=== PATIENT | male | born 1960 | race Caucasian/White ===

== ENCOUNTER 2020-03-29 15:03 | Outpatient (RCR) | payer MEDICAID, SELFPAY | END 2021-01-09 08:00 | disposition home or self-care (01) | LOC: HO.WCC 15:03 | PROVIDERS: Visit Provider Surgery | DX: E11.621 Type 2 diabetes mellitus with foot ulcer (principal); L97.515 Non-pressure chronic ulcer of other part of right foot with muscle involvement without evidence of necrosis; E11.22 Type 2 diabetes mellitus with diabetic chronic kidney disease; I12.9 Hypertensive chronic kidney disease with stage 1 through stage 4 chronic kidney disease, or unspecified chronic kidney disease; N18.30 Chronic kidney disease, stage 3 unspecified; F11.20 Opioid dependence, uncomplicated; B20 Human immunodeficiency virus [HIV] disease; Z89.512 Acquired absence of left leg below knee; Z87.891 Personal history of nicotine dependence; Z86.19 Personal history of other infectious and parasitic diseases | CPT/HCPCS: 11042; 11043; 11045; 15275; 99213; Q4186; Q4187 ==

== ENCOUNTER → 2020-04-24 14:27 | Outpatient (BNVA) | payer MEDICAID, SELFPAY | PROVIDERS: Visit Provider Surgery Vascular Surgery | DX: I73.9 Peripheral vascular disease, unspecified (principal); Z89.512 Acquired absence of left leg below knee | CPT/HCPCS: 99212 ==

== ENCOUNTER 2020-04-25 06:59 | Day surgery (SDC) | payer MEDICAID, SELFPAY ==
[2020-04-25] VITALS (8 sets, daily range): BP systolic 104–137; BP diastolic 68–84; PULSE 55–88; RESP 16–18; TEMP 36.3–36.6; O2SAT 94–98; BMI 24.7
[2020-04-25 08:12] LABS: Glucose, Whole Blood 209 mg/dL (60-115)
[2020-04-25] MEDS: 0.9 % Sodium Chloride 1,000 ML 100 ML IVCONT (08:33)
[2020-04-25 08:36] LABS: MANUAL DIFF FLAG NO
[2020-04-25 08:38] LABS: Basophils Percent Auto 0.5 % (0-2); Eosinophils Absolute Auto 0.1 X10*3/uL (0.0-0.4); Eosinophils Percent Auto 1.4 % (0-4); Hemoglobin 11.7 g/dl (14.0-18.0); Imm Gran Abs Auto 0.02 X10*3/uL (0.00-0.03); Imm Gran Pct Auto 0.3 % (0.0-0.4); Lymphocytes Absolute Auto 2.2 X10*3/uL (1.2-4.9); Lymphocytes Percent Auto 27.6 % (20-40); Mean Corpuscular HGB Conc 34.4 g/dl (31.0-36.0); Mean Corpuscular Hemoglobin 30.4 pg (27.0-33.0); Mean Corpuscular Volume 88.3 fL (80-98); Mean Platelet Volume 9.3 fL (9.4-12.4); Monocytes Absolute Auto 0.6 X10*3/uL (0.1-1.2); Monocytes Percent Auto 7.8 % (2-11); Neutrophils Absolute Auto 4.9 X10*3/uL (2.0-8.3); Neutrophils Percent Auto 62.4 % (45-73); Platelet Count 178 X10*3/uL (160-400); Red Blood Count 3.85 X10*6/uL (4.60-5.80); Red Cell Distribution Width 12.6 % (11.0-16.0); White Blood Count 7.8 X10*3/uL (4.8-10.8)
[2020-04-25 08:47] LABS: Prothrombin Time 12.1 SEC (10.8-13.0)
[2020-04-25 08:50] LABS: Partial Thromboplastin Time 41.5 SEC (24.1-38.0)
[2020-04-25 09:00] LABS: Anion Gap 14 (12-20); Blood Urea Nitrogen 23 mg/dL (9-16); Calcium 8.3 mg/dL (8.4-10.2); Carbon Dioxide 26 mmol/L (22-29); Chloride 98 mmol/L (96-108); Creatinine Clr Calc Pharmacy 51.2; Estimated Glomerular Filt Rate 45; Glucose Random 219 mg/dL (60-115); Sodium 134 mmol/L (135-145)
[2020-04-25] MEDS: iohexoL 300 MG/ML 100 ML INFUS..BTL 60 ML IV (11:25)
[2020-04-25] MEDS: Lidocaine HCl 1 % 20 ML VIAL 10 ML SUBCUT (11:26)
[2020-04-25] MEDS: Heparin Sodium,Porcine 5,000 UNIT/ML VIAL 10000 UNIT IVPUSH (11:27)
[2020-04-25] MEDS: Clopidogrel Bisulfate 300 MG TABLET PO (11:36)
--- NOTE | 2020-04-25 14:25 | OP_ITS ---
SURGEON: Edgardo Dennis MD INDICATIONS: Keyla is a 59-year-old gentleman with a prior left below-knee amputation with a nonhealing right lower extremity ulceration. He now presents for endovascular intervention. Risks, benefits, and complications were discussed in detail with the patient. The patient understood and consented. PREOPERATIVE DIAGNOSIS: POSTOPERATIVE DIAGNOSIS: PROCEDURE PERFORMED: ESTIMATED BLOOD LOSS: Minimal. COMPLICATIONS: ANESTHESIA: Local with moderate conscious sedation for a total of 52 minutes performed by me. ASSISTANTS: SPECIMENS: None. PREPROCEDURE DIAGNOSIS: Atherosclerosis with nonhealing right lower extremity ulcer. POSTPROCEDURE DIAGNOSIS: Atherosclerosis with nonhealing right lower extremity ulcer. PROCEDURES PERFORMED: 1. Ultrasound-guided left common femoral access. 2. Aortogram with right lower extremity runoff. 3. Plasty of right anterior tibial artery. 4. StarClose closure device placement. DESCRIPTION OF PROCEDURE: The patient was brought to the angiography suite, prior to which timeout was called for patient identification and site verification. Left groin was prepped and draped in standard surgical fashion. Under ultrasound guidance, common femoral was accessed with micropuncture needle, wire, subsequently 4-[place] sheath. Flush catheter was brought to the level of the aorta. Aortogram was then undertaken, brought down to the level of the iliacs. Iliacs were imaged, subsequently brought up and over to the right side through the SFA, which runoff study was then undertaken. There was below-knee disease. At this point, 4000 units of systemic heparin was administered and a Glidewire Advantage was placed and then a 6-[place] Citizen sheath was brought up and over. Once in appropriate position, I brought a wire down into the anterior tibial, placed a TrailBlazer catheter and exchanged out for a 0.014 wire. Over the 0.014 wire, we subsequently placed a progressive balloon 1.5 to 2, and we then plastied the area with a 2 x 40 balloon. Subsequently, we went to a 3 x 40 balloon and plastied along the length of the anterior tibial. This went all the way down to the mid calf. We were not able to advance any further than that. Once this was accomplished, catheter, wire, sheath were then removed. StarClose closure device was then deployed. At the end of the case, sponge, needle, and instrument counts were correct. The patient tolerated the procedure well, returned to Recovery with stable vitals. INTERPRETATION OF FILMS: 1. Ultrasound guidance left side demonstrated appropriate puncture. 2. Aortogram demonstrated good flow through the aorta down to the iliacs. 3. Right lower extremity study demonstrated good flow down through the common femoral, profunda, SFA all the way down to the popliteal. Posterior tibial was the dominant runoff went all the way to the foot was a very good caliber. Peroneal was occluded near the origin. Anterior tibial had some flow through the proximal part with significant stenotic disease. After plasty, it was patent all the way down to the mid portion, giving flow to some collaterals, but occluded at the mid calf. Good flow all the way down to the mid calf in the anterior tibial. CONCLUSION: Successful diagnostic angiogram, successful plasty of right anterior tibial artery, hopes that the wound will heal. There is no additional flow that can be established for this leg. DRAINS: None. MD CHRISTIE Mclean/POLO / [id number]
== END 2020-04-25 13:45 | disposition home or self-care (01) ==
LOC: HO.RADIR 07:20 → HO.SSS 07:59
PROVIDERS: PCP Family Medicine; Visit Provider Surgery Vascular Surgery
PROC: (CPT 37228; principal; 2020-04-25 09:00)
DX: E11.622 Type 2 diabetes mellitus with other skin ulcer (principal); Z79.4 Long term (current) use of insulin; E11.621 Type 2 diabetes mellitus with foot ulcer; E11.42 Type 2 diabetes mellitus with diabetic polyneuropathy; E11.51 Type 2 diabetes mellitus with diabetic peripheral angiopathy without gangrene; I70.238 Atherosclerosis of native arteries of right leg with ulceration of other part of lower leg; I70.235 Atherosclerosis of native arteries of right leg with ulceration of other part of foot; L97.519 Non-pressure chronic ulcer of other part of right foot with unspecified severity; L97.819 Non-pressure chronic ulcer of other part of right lower leg with unspecified severity; Z89.512 Acquired absence of left leg below knee; Z21 Asymptomatic human immunodeficiency virus [HIV] infection status
CPT/HCPCS: 37228; 36253; 36415; 76942; 80048; 82947; 85025; 85610; 85730; C1725; C1760; C1769; C1887; J2250; J3010; Q9967

== ENCOUNTER → 2020-05-22 08:42 | Outpatient (BNVA) | payer MEDICAID, SELFPAY | PROVIDERS: PCP Family Medicine; Referring Provider Family Medicine; Visit Provider Surgery Vascular Surgery | DX: L97.419 Non-pressure chronic ulcer of right heel and midfoot with unspecified severity (principal); I73.9 Peripheral vascular disease, unspecified; Z89.431 Acquired absence of right foot | CPT/HCPCS: 99212 ==

== ENCOUNTER 2020-07-04 08:34 | Outpatient (REF) | payer MEDICAID, SELFPAY ==
--- NOTE | 2020-07-04 08:38 | US_ITS ---
EXAMINATION: COLOR-FLOW DUPLEX IMAGING OF THE BILATERAL LOWER EXTREMITY ARTERIAL SYSTEM. VELOCITY MEASUREMENTS THROUGHOUT THE FEMORAL ARTERIES WITH ANKLE-BRACHIAL PERIPHERAL ARTERIAL TESTING. COMPARISON: Comparison is made to a previous study dated 01/17/2020. CLINICAL INFORMATION: This a 59-year-old male with a history of hypertension, hyperlipidemia, diabetes. History of right leg angiogram on 04/25/2020. History of right foot amputation 2 years ago. History of left below-knee amputation 3 years ago. Interventional Radiologist: Agustin Hameed M.D., F.S.I.R., F.A.C.R. RIGHT FEMORAL RUNOFF VELOCITIES: The right common femoral artery measures 101 cm/s and triphasic. The right profunda femoral artery is 58 cm/s and is triphasic. Right proximal superficial femoral artery measures 105 cm/s and triphasic. Mid superficial femoral artery is 115 cm/s and triphasic. Distal right superficial femoral artery measures 61 cm/s and is triphasic. Right popliteal velocity measures 80 cm/s and is triphasic. The posterior tibial artery velocity measures 123 cm/s and was triphasic. The right ankle-brachial index is 0.99. LEFT FEMORAL RUNOFF VELOCITIES: The left common femoral artery measures 105 cm/s and triphasic. The left profunda femoral artery is 91 cm/s and is triphasic. Left proximal superficial femoral artery measures 61 cm/s and triphasic. Mid superficial femoral artery is 72 cm/s and triphasic. Distal left superficial femoral artery measures 80 cm/s and is triphasic. Left popliteal velocity measures 38 cm/s and is triphasic. The left ankle-brachial index could not be obtained because of the amputation. US/US arterial duplex LE BI IMPRESSION: 1. No hemodynamically significant stenosis is identified at rest. No significant changes noted when compared to the previous study.
== END 2020-07-04 08:35 | disposition home or self-care (01) ==
LOC: HO.US 08:34
PROVIDERS: Visit Provider Surgery Vascular Surgery
DX: I70.213 Atherosclerosis of native arteries of extremities with intermittent claudication, bilateral legs (principal)
CPT/HCPCS: 93923; 93925

== ENCOUNTER → 2020-07-13 08:00 | Outpatient (BNVA) | payer MEDICAID, SELFPAY | PROVIDERS: Visit Provider Nurse Practitioner Gerontology | DX: Z76.89 Persons encountering health services in other specified circumstances (principal) ==

== ENCOUNTER 2020-07-17 14:02 | Outpatient (REF) | payer MEDICAID, SELFPAY ==
--- NOTE | 2020-07-17 | MR_ITS ---
EXAMINATION: MR ABDOMEN WITHOUT AND WITH CONTRAST CLINICAL INFORMATION: Chronic viral hepatitis B. Abnormal alpha-fetoprotein. COMPARISON: Previous abdominal ultrasound December [address] scan of the abdomen and pelvis March 2018 TECHNIQUE: MR abdomen was performed without and with use of 7.5 mL intravenous Gadavist gadolinium contrast. Postcontrast images are performed in multiphase dynamic sequences. Imaging was performed in 3 planes. FINDINGS: LUNG BASES: The visualized lung bases are unremarkable. LIVER, GALLBLADDER, AND BILIARY TREE: The liver is normal in size, smooth in contour, and normal in signal. There is a new lesion in the posterior segment of the right lobe of the liver. This is low signal on T1-weighted sequences, high signal on T2-weighted sequences and demonstrates peripheral enhancement. This remains peripheral enhancemed on all sequences without evidence of washout. Superiorly this appears more cystic with a multiloculated septations and question of a small satellite nodules. Inferiorly this appears slightly more solid. This is irregular in shape and difficult to measure. This measures approximately 5.3 x 3.7 by an AP transverse and 8.4 longitudinal dimension. There is question of thrombus in an adjacent portal vein branch for example image 41 and 46 post contrast. This is new from previous exams. This does not have a washout enhancement pattern to suggest hepatocellular cancer carcinoma. This does demonstrate peripheral pseudocapsule prolonged enhancement superiorly. Abscess and metastatic disease should be considered as well as atypical appearing HCC. No other focal liver lesion is seen. There are gallstones in the gallbladder. There is no biliary duct dilatation. PANCREAS: Unremarkable. SPLEEN: The spleen is slightly enlarged measuring 14 cm in length. ADRENAL GLANDS: Normal. KIDNEYS AND URETERS: There are small right renal cysts. GASTROINTESTINAL TRACT: No bowel obstruction. No ascites or fluid collection. The stomach appears filled with food. ABDOMINAL WALL: No significant hernia is appreciated. LYMPH NODES: No lymphadenopathy. VASCULAR: Unremarkable. OSSEOUS STRUCTURES: Marrow signal normal. There is mild curvature of the lower lumbar sacral spine to the left and degenerative change. MR/MR abdomen wo/w con IMPRESSION: New heterogeneous lesion in the posterior segment of the right lobe of the liver measuring approximately 5.3 x 3.7 x 8.4 cm. Superiorly this appears more cystic and inferiorly this appears more solid. This does not have early arterial phase enhancement and washout characteristic of hepatocellular carcinoma. This does demonstrate retained peripheral enhancement or possible pseudocapsule appearance. Abscess and metastatic disease as well as hepatocellular carcinoma should be considered. Liver biopsy should be considered. Gallstones. Small right renal cysts.
== END 2020-07-17 14:03 | disposition home or self-care (01) ==
LOC: HO.MRI 14:02
PROVIDERS: Visit Provider Family Medicine
DX: B18.1 Chronic viral hepatitis B without delta-agent (principal); B20 Human immunodeficiency virus [HIV] disease; E13.40 Other specified diabetes mellitus with diabetic neuropathy, unspecified; R77.2 Abnormality of alphafetoprotein
CPT/HCPCS: 74183; 99212; A9585

== ENCOUNTER 2020-07-31 07:52 | Day surgery (SDC) | payer MEDICAID, SELFPAY ==
--- NOTE | 2020-07-31 | US_ITS ---
EXAMINATION: ULTRASOUND-GUIDED LIVER BIOPSY CLINICAL INFORMATION: Liver lesion. History of chronic viral hepatitis B. Abnormal alpha-fetoprotein. COMPARISON: Liver MRI 07/17/2020 TECHNIQUE: Procedure and risks and benefits including bleeding and infection were discussed with the patient and informed consent was obtained. The patient was positioned in the supine position. The right upper quadrant was prepped and draped in the usual sterile fashion. The skin and soft tissues were anesthetized with 1% lidocaine plain. Using ultrasound guidance and a coaxial system, access to a partially 5 cm hypoechoic lesion high in the right lobe of the liver was obtained. 5 20-gauge core biopsies were obtained. Specimen was sent for pathology and microbiology studies. The patient received Versed 1 mg and fentanyl 25 mcg intravenously during the procedure. Total sedation time was 15 minutes. FINDINGS: Liver echotexture is increased and heterogeneous suggestive of hepatocellular disease. There is a 5 cm hypoechoic lesion seen high in the dome of the right lobe of the liver that was targeted for biopsy. This is smaller than abnormality appreciated by MRI. US/US biopsy liver IMPRESSION: Ultrasound-guided liver biopsy.
[2020-07-31 08:13] LABS: Glucose, Whole Blood 164 mg/dL (60-115)
[2020-07-31 08:23] LABS: MANUAL DIFF FLAG NO
[2020-07-31 08:26] LABS: Basophils Absolute Auto 0.1 X10*3/uL (0.0-0.2); Basophils Percent Auto 0.7 % (0-2); Eosinophils Absolute Auto 0.1 X10*3/uL (0.0-0.4); Eosinophils Percent Auto 1.4 % (0-4); Hemoglobin 11.9 g/dl (14.0-18.0); Imm Gran Abs Auto 0.04 X10*3/uL (0.00-0.03); Imm Gran Pct Auto 0.5 % (0.0-0.4); Lymphocytes Absolute Auto 1.9 X10*3/uL (1.2-4.9); Lymphocytes Percent Auto 26.3 % (20-40); Mean Corpuscular HGB Conc 33.1 g/dl (31.0-36.0); Mean Corpuscular Hemoglobin 29.5 pg (27.0-33.0); Mean Corpuscular Volume 89.1 fL (80-98); Mean Platelet Volume 9.2 fL (9.4-12.4); Monocytes Absolute Auto 0.5 X10*3/uL (0.1-1.2); Monocytes Percent Auto 7.4 % (2-11); Neutrophils Absolute Auto 4.7 X10*3/uL (2.0-8.3); Neutrophils Percent Auto 63.7 % (45-73); Platelet Count 197 X10*3/uL (160-400); Red Blood Count 4.04 X10*6/uL (4.60-5.80); Red Cell Distribution Width 13.1 % (11.0-16.0); White Blood Count 7.3 X10*3/uL (4.8-10.8)
[2020-07-31 08:32] LABS: Prothrombin Time 11.9 SEC (10.8-13.0)
[2020-07-31 08:35] LABS: Partial Thromboplastin Time 41.5 SEC (24.1-38.0)
[2020-07-31 08:49] LABS: Anion Gap 14 (12-20); Carbon Dioxide 29 mmol/L (22-29); Chloride 101 mmol/L (96-108); Potassium 4.8 mmol/L (3.3-5.1); Sodium 139 mmol/L (135-145)
--- NOTE | 2020-07-31 10:32 | HO.RADPN ---
RADIOLOGY Narrative Narrative: 20g Core biopsy of right lover liver lesion using a coaxial system. 5 20g core biopsies obtained for pathology and culture. No complication.
[2020-07-31 10:37] VITALS: BP 115/71; PULSE 66; RESP 12; TEMP 36.1; O2SAT 97
[2020-07-31 11:07] VITALS: BP 112/61; PULSE 65; RESP 16; O2SAT 98
[2020-07-31 11:37] VITALS: BP 124/71; PULSE 72; RESP 16; O2SAT 98
[2020-07-31 12:07] VITALS: BP 99/50; PULSE 67; RESP 18; O2SAT 97
[2020-07-31 12:31] VITALS: BP 104/52; PULSE 64; RESP 20; TEMP 36.2; O2SAT 97
== END 2020-07-31 12:58 | disposition home or self-care (01) ==
PROVIDERS: Radiology Diagnostic Radiology; PCP Family Medicine; Visit Provider Radiology Diagnostic Radiology
DX: C22.0 Liver cell carcinoma (principal); B18.1 Chronic viral hepatitis B without delta-agent; B20 Human immunodeficiency virus [HIV] disease; I10 Essential (primary) hypertension; E11.42 Type 2 diabetes mellitus with diabetic polyneuropathy; E11.29 Type 2 diabetes mellitus with other diabetic kidney complication; N28.9 Disorder of kidney and ureter, unspecified; I73.9 Peripheral vascular disease, unspecified; Z89.432 Acquired absence of left foot; Z79.4 Long term (current) use of insulin; Z79.899 Other long term (current) drug therapy
CPT/HCPCS: 36415; 47000; 76942; 80051; 82947; 85025; 85610; 85730; 87071; 87073; 87205; 88307; 88313; 99152; J2250; J3010

== ENCOUNTER 2020-08-15 09:31 | Outpatient (REF) | payer MEDICAID, SELFPAY ==
--- NOTE | ~2020-08-15 | XR_ITS ---
EXAMINATION: XR FOOT, RIGHT CLINICAL INFORMATION: Right foot plantar osteomyelitis. COMPARISON: 12/02/2019 TECHNIQUE: Three views of the right foot. FINDINGS: Patient is status post amputation of the forefoot with remaining calcaneus and talar bones. Clips are seen anteriorly. There is a soft tissue defect consistent with ulcer about the plantar aspect. No gas within the soft tissues is identified. No definite osteopenia adjacent to the ulcer is identified. There does appear to be a slight amount of irregularity about the dorsal plantar aspect of the calcaneal amputation site which on study of 12/02/2019 was smooth and linear, and now there appears to be a small amount of undulation. This may be related to some degree of healing, however, osteomyelitis cannot be excluded on this study. XR/XR foot RT min 3V IMPRESSION: Status post amputation of the forefoot with soft tissue ulceration about the plantar aspect. No definite erosion or adjacent osteopenia but with slight irregularity about the dorsal plantar calcaneal amputation site.
[2020-08-15 12:20] LABS: Estimated Average Glucose 226 mg/dL; Hemoglobin A1c % 9.5 %
== END 2020-08-15 09:32 | disposition home or self-care (01) ==
LOC: HO.XRAY 09:31
PROVIDERS: Visit Provider Surgery
DX: E11.621 Type 2 diabetes mellitus with foot ulcer (principal); E11.69 Type 2 diabetes mellitus with other specified complication; L97.509 Non-pressure chronic ulcer of other part of unspecified foot with unspecified severity; M86.9 Osteomyelitis, unspecified
CPT/HCPCS: 36415; 73630; 83036

== ENCOUNTER → 2020-11-09 09:27 | Outpatient (BNVA) | payer MEDICAID, SELFPAY | PROVIDERS: PCP Family Medicine; Referring Provider Family Medicine; Visit Provider Nurse Practitioner Family ==

== ENCOUNTER 2020-11-11 16:33 | Emergency (ER) | payer MEDICAID, SELFPAY ==
--- NOTE | ~2020-11-11 | CT_ITS ---
EXAMINATION: CT ABDOMEN AND PELVIS WITHOUT CONTRAST CLINICAL INFORMATION: Worsening abdominal pn,nausea and vomit with dx of liver ca . COMPARISON: 04/01/[address] scan of the chest. TECHNIQUE: Multidetector volumetric imaging was performed from the superior aspect of the liver through the pubic symphysis without contrast per request. Sagittal and coronal reformatted images were obtained on the technologist workstation. This CT examination was performed using dose optimization techniques as appropriate, variously including the following: *Automated exposure control *Adjustment of mA and/or kV according to patient size (this includes techniques or standardized protocols for targeted exams where dose is matched to indication/reason for exam; i.e. extremities or head) *Use of iterative reconstruction technique DLP: 411 mGy-cm. FINDINGS: LUNG BASES: Minimal dependent linear atelectasis or scarring. PERITONEAL SPACE: Small volume ascites LIVER, GALLBLADDER, BILIARY TREE: Evaluation the liver is somewhat limited on this noncontrast study. There is however a large mass lesion occupying much of the right posterior liver measuring approximately 14.0 x 13.1 cm in size. This was partially seen on the 10/12/2020 CT scan of the chest were visualized in the liver mass that measured approximately 12.7 x 11.5 cm in size at that time. Gallbladder contains sludge in dependent gallstones. There is no gallbladder wall thickening or pericholecystic inflammatory changes. PANCREAS: Unremarkable. SPLEEN: Mildly enlarged at 13.3 cm in length ADRENAL GLANDS: Unremarkable. KIDNEYS AND URETERS: The kidneys are normal in size, shape, and attenuation. No hydronephrosis, hydroureter, or calculi seen. No perinephric stranding. BLADDER: Unremarkable. GASTROINTESTINAL TRACT: Scattered colonic diverticulosis but no obvious diverticulitis or obstructive changes to the bowel. The appendix is not well delineated. No small bowel obstruction ABDOMINAL WALL: No significant hernia is appreciated. LYMPHOVASCULAR STRUCTURES: Vascular calcification within the aorta iliac system. PELVIC VISCERA: Unremarkable. OSSEUS STRUCTURES: Mild degenerative changes in the spine. No acute bony abnormality CT/CT abdomen pelvis wo con IMPRESSION: Large liver mass is demonstrated even on this noncontrast study. Currently this measures approximately 14 cm in size which appears to be increased from 12.7 cm in size on the most recent prior study from 10/12/2020 although these are different techniques. No obstructive changes to the bowel. Small volume of ascites is now seen. Incidental gallstones.
[2020-11-11 16:44] VITALS: BP 140/80; PULSE 76; RESP 18; TEMP 36.8; O2SAT 100; BMI 20.8
[2020-11-11 19:54] LABS: MANUAL DIFF FLAG NO
[2020-11-11 19:55] LABS: Basophils Percent Auto 0.2 % (0-2); Eosinophils Percent Auto 0.2 % (0-4); Hematocrit 32.1 % (42-52); Hemoglobin 9.8 g/dl (14.0-18.0); Imm Gran Abs Auto 0.05 X10*3/uL (0.00-0.03); Imm Gran Pct Auto 0.6 % (0.0-0.4); Lymphocytes Absolute Auto 1.4 X10*3/uL (1.2-4.9); Mean Corpuscular HGB Conc 30.5 g/dl (31.0-36.0); Mean Corpuscular Hemoglobin 26.9 pg (27.0-33.0); Mean Corpuscular Volume 88.2 fL (80-98); Mean Platelet Volume 9.2 fL (9.4-12.4); Monocytes Absolute Auto 0.7 X10*3/uL (0.1-1.2); Monocytes Percent Auto 8.9 % (2-11); Neutrophils Percent Auto 73.1 % (45-73); Platelet Count 175 X10*3/uL (160-400); Red Blood Count 3.64 X10*6/uL (4.60-5.80); Red Cell Distribution Width 15.9 % (11.0-16.0); White Blood Count 8.3 X10*3/uL (4.8-10.8)
[2020-11-11 20:32] LABS: Alanine Aminotransferase 22 U/L (0-40); Albumin Level 2.8 g/dL (3.5-5.0); Alkaline Phosphatase 296 U/L (39-117); Anion Gap 15 (12-20); Aspartate Amino Transferase 59 U/L (5-37); Bilirubin Total 0.6 mg/dL (0.0-1.0); Blood Urea Nitrogen 20 mg/dL (9-16); Calcium 8.1 mg/dL (8.4-10.2); Carbon Dioxide 26 mmol/L (22-29); Chloride 98 mmol/L (96-108); Creatinine Clr Calc Pharmacy 57.3; Estimated Glomerular Filt Rate 58; Glucose Random 173 mg/dL (60-115); Lipase 13 U/L (8-78); Potassium 5.1 mmol/L (3.3-5.1); Sodium 134 mmol/L (135-145); Total Protein 5.8 g/dL (6.5-8.0)
--- NOTE | 2020-11-11 21:02 | ED_ITS ---
HPI - Abdominal Pain General Chief Complaint: Abdominal Pain Stated Complaint: flank pain Time Seen by Provider: 11/11/20 20:36 Source: patient Mode of arrival: ambulatory Limitations: no limitations History of Present Illness HPI narrative: Patient is a 60-year-old male with a past medical history of liver cancer, diagnosed in July 2020, HIV, HEp B, HTN, H LD, PVD, thrombocytopenia,DM2 who presents with worsening abdominal pain gas, nausea, vomiting and weakness. He states he has had anemia recently because of the liver cancer, has been taking all of his normal meds but he is not on iron. States he has been this way for a few weeks but is getting worse today. He is able to tolerate foods in small amounts but will randomly vomit. Denies fevers, chest pain or sob. Denies KING or dizziness. Says he has times of confusion but is not confused now. Denies bloody or black stools and denies vomiting blood or coffee-grounds. Has been taking over the counter meds (antacids and simethicone) with no relief Related Data Home Medications Medication Instructions Recorded Confirmed insulin glargine 100 unit/mL (3 30 unit SUBCUT QPM ml 06/28/20 11/10/20 mL) subcutaneous pen aspirin 81 mg tablet,delayed 81 mg PO DAILY 07/13/20 11/10/20 release atorvastatin 80 mg tablet 80 mg PO DAILY 07/13/20 11/10/20 bictegravir 50 mg-emtricitabine 1 tab PO DAILY 07/13/20 11/10/20 200 mg-tenofovir alafenam 25 mg tablet doxycycline hyclate 100 mg capsule 100 mg PO DAILY 07/13/20 11/10/20 lisinopril 10 mg tablet 10 mg PO DAILY 07/13/20 11/10/20 methadone 10 mg/5 mL oral solution 6.5 mg PO Q6H ml 07/13/20 11/10/20 vitamin B complex 1 tab PO DAILY 07/13/20 11/10/20 Previous Rx's Medication Instructions Recorded insulin lispro 100 unit/mL See Rx Instructions SUBCUT TID #15 10/05/20 subcutaneous pen ml diclofenac sodium 50 mg PO Q12H PRN #14 tab 11/11/20 Allergies Allergy/AdvReac Type Severity Reaction Status Date / Time iodine Allergy Intermediate Rash Verified 11/09/20 10:43 Review of Systems Review of Systems Yes all other systems are reviewed and are negative Physical Exam Vital Signs: Vital Signs: Last Vital Signs Temp 98.2 F 11/11/20 16:44 Pulse 76 11/11/20 16:44 Resp 18 11/11/20 16:44 BP 140/80 H 11/11/20 16:44 Pulse Ox 100 11/11/20 16:44 Body Mass Index 20.8 Const: General: cooperative, healthy appearing, comfortable and no acute distress Nutritional Appearance: thin Orientation/consciousness: patient oriented x3 HENMT: Head: Yes normal to inspection Eyes: General: appearance normal, both eyes and all related structures Neck: Neck: Yes normal visual inspection and Yes full ROM Resp: Effort & Inspection: normal respiratory effort and able to speak in complete sentences Auscultation: clear to auscultation bilaterally Cardio: Rate: regular rate Rhythm: regular rhythm GI: Inspection: Yes normal to inspection Palpation (GI): Soft to palpation and Tenderness to palpation present (GI) in the LLQ, in the RLQ, in the RUQ and Mayers's sign positive Neuro: General: patient oriented x3 Extrem: Other: left BKA Course Course Course Narrative: Patient is a 60-year-old male with a past medical history of liver cancer, diagnosed in July 2020, HIV, Hep B, HTN, HLD, PVD, thrombocytopenia,DM2 who presents with worsening abdominal pain nausea vomiting and weakness. Initial labs were done, will add ammonia, coags and get abd CT scan then reassess. Pt's hepatocellular carcinoma doctors are at [facility], Dr Greg Dallas, and Gertrude Bennett, MS, PROFESSIONAL DEVELOPMENT MANAGER [phone] MDM - Abdominal Pain Medical Records Attestation: I reviewed the patient's medical records. Lab Data Attestation: I reviewed the patient's lab results. Result diagrams: 11/11/20 19:50 11/11/20 19:50 Labs: Lab Results 11/11/20 11/11/20 11/11/20 Range/Units 19:50 19:50 19:50 WBC 8.3 (4.8-10.8) X10*3/uL RBC 3.64 L (4.60-5.80) X10*6/uL Hgb 9.8 L (14.0-18.0) g/dl Hct 32.1 L (42-52) % MCV 88.2 (80-98) fL MCH 26.9 L (27.0-33.0) pg MCHC 30.5 L (31.0-36.0) g/dl RDW 15.9 (11.0-16.0) % Plt Count 175 (160-400) X10*3/uL MPV 9.2 L (9.4-12.4) fL Immature Gran % (Auto) 0.6 H (0.0-0.4) % Neut % (Auto) 73.1 H (45-73) % Lymph % (Auto) 17.0 L (20-40) % Phillips % (Auto) 8.9 (2-11) % Eos % (Auto) 0.2 (0-4) % Baso % (Auto) 0.2 (0-2) % Lymph # (Auto) 1.4 (1.2-4.9) X10*3/uL Phillips # (Auto) 0.7 (0.1-1.2) X10*3/uL Eos # (Auto) 0.0 (0.0-0.4) X10*3/uL Baso # (Auto) 0.0 (0.0-0.2) X10*3/uL Abs Immat Gran (auto) 0.05 H (0.00-0.03) X10*3/uL Absolute Neuts (auto) 6.0 (2.0-8.3) X10*3/uL Absolute Nucleated RBC 0.000 (0.0-0.012) X10*3/uL Nucleated RBC % (auto) 0.0 (0.0-0.2) /100WBC PT 14.0 H (10.8-13.0) SEC INR 1.2 H (0.9-1.1) APTT 36.0 (24.1-38.0) SEC Hold Blue Top SEE NOTE Sodium 134 L (135-145) mmol/L Potassium 5.1 (3.3-5.1) mmol/L Chloride 98 (96-108) mmol/L Carbon Dioxide 26 (22-29) mmol/L Anion Gap 15 (12-20) BUN 20 H (9-16) mg/dL Creatinine 1.27 (0.5-1.4) mg/dL Estim Creat Clear Calc 57.3 Estimated GFR 58 Random Glucose 173 H (60-115) mg/dL Calcium 8.1 L (8.4-10.2) mg/dL Total Bilirubin 0.6 (0.0-1.0) mg/dL AST 59 H (5-37) U/L ALT 22 (0-40) U/L Alkaline Phosphatase 296 H (39-117) U/L Ammonia (13-55) umol/L Total Protein 5.8 L (6.5-8.0) g/dL Albumin 2.8 L (3.5-5.0) g/dL Lipase 13 (8-78) U/L / Range/Units 21:45 WBC (4.8-10.8) X10*3/uL RBC (4.60-5.80) X10*6/uL Hgb (14.0-18.0) g/dl Hct (42-52) % MCV (80-98) fL MCH (27.0-33.0) pg MCHC (31.0-36.0) g/dl RDW (11.0-16.0) % Plt Count (160-400) X10*3/uL MPV (9.4-12.4) fL Immature Gran % (Auto) (0.0-0.4) % Neut % (Auto) (45-73) % Lymph % (Auto) (20-40) % Phillips % (Auto) (2-11) % Eos % (Auto) (0-4) % Baso % (Auto) (0-2) % Lymph # (Auto) (1.2-4.9) X10*3/uL Phillips # (Auto) (0.1-1.2) X10*3/uL Eos # (Auto) (0.0-0.4) X10*3/uL Baso # (Auto) (0.0-0.2) X10*3/uL Abs Immat Gran (auto) (0.00-0.03) X10*3/uL Absolute Neuts (auto) (2.0-8.3) X10*3/uL Absolute Nucleated RBC (0.0-0.012) X10*3/uL Nucleated RBC % (auto) (0.0-0.2) /100WBC PT (10.8-13.0) SEC INR (0.9-1.1) APTT (24.1-38.0) SEC Hold Blue Top Sodium (135-145) mmol/L Potassium (3.3-5.1) mmol/L Chloride (96-108) mmol/L Carbon Dioxide (22-29) mmol/L Anion Gap (12-20) BUN (9-16) mg/dL Creatinine (0.5-1.4) mg/dL Estim Creat Clear Calc Estimated GFR Random Glucose (60-115) mg/dL Calcium (8.4-10.2) mg/dL Total Bilirubin (0.0-1.0) mg/dL AST (5-37) U/L ALT (0-40) U/L Alkaline Phosphatase (39-117) U/L Ammonia 40 (13-55) umol/L Total Protein (6.5-8.0) g/dL Albumin (3.5-5.0) g/dL Lipase (8-78) U/L Imaging Data CT scan - abdomen: My impression: large mass lesion occupying much of the right posterior liver measuring approximately 14.0 x 13.1 cm in size Radiologist's impression: [address] Scan ReportSigned Patient: Marck Abraham#: [id number]: 1960Acct:[id number]/Sex: 60 / MADM Date: 11/11/20Loc: E[address]tt[address] Dr: Ordering Physician: Sravani Miramontes PA-C Date of Service: 11/11/20 Procedure(s): CT abdomen pelvis wo con Accession Number(s): [id number] cc: Sravani Miramontes PA-C~ EXAMINATION: CT ABDOMEN AND PELVIS WITHOUT CONTRAST CLINICAL INFORMATION: Worsening abdominal pn,nausea and vomit with dx of liver ca . COMPARISON: 04/01/[address] scan of the chest. TECHNIQUE: Multidetector volumetric imaging was performed from the superior aspect of the liver through the pubic symphysis without contrast per request. Sagittal and coronal reformatted images were obtained on the technologist workstation. This CT examination was performed using dose optimization techniques as appropriate, variously including the following: *Automated exposure control *Adjustment of mA and/or kV according to patient size (this includes techniques or standardized protocols for targeted exams where dose is matched to indication/reason for exam; i.e. extremities or head) *Use of iterative reconstruction technique DLP: 411 mGy-cm. FINDINGS: LUNG BASES: Minimal dependent linear atelectasis or scarring. PERITONEAL SPACE: Small volume ascites LIVER, GALLBLADDER, BILIARY TREE: Evaluation the liver is somewhat limited on this noncontrast study. There is however a large mass lesion occupying much of the right posterior liver measuring approximately 14.0 x 13.1 cm in size. This was partially seen on the 10/12/2020 CT scan of the chest were visualized in the liver mass that measured approximately 12.7 x 11.5 cm in size at that time. Gallbladder contains sludge in dependent gallstones. There is no gallbladder wall thickening or pericholecystic inflammatory changes. PANCREAS: Unremarkable. SPLEEN: Mildly enlarged at 13.3 cm in length ADRENAL GLANDS: Unremarkable. KIDNEYS AND URETERS: The kidneys are normal in size, shape, and attenuation. No hydronephrosis, hydroureter, or calculi seen. No perinephric stranding. BLADDER: Unremarkable. GASTROINTESTINAL TRACT: Scattered colonic diverticulosis but no obvious diverticulitis or obstructive changes to the bowel. The appendix is not well delineated. No small bowel obstruction ABDOMINAL WALL: No significant hernia is appreciated. LYMPHOVASCULAR STRUCTURES: Vascular calcification within the aorta iliac system. PELVIC VISCERA: Unremarkable. OSSEUS STRUCTURES: Mild degenerative changes in the spine. No acute bony abnormality CT/CT abdomen pelvis wo con IMPRESSION: Large liver mass is demonstrated even on this noncontrast study. Currently this measures approximately 14 cm in size which appears to be increased from 12.7 cm in size on the most recent prior study from 10/12/2020 although these are different techniques. No obstructive changes to the bowel. Small volume of ascites is now seen. Incidental gallstones. Dictated By:MARCELLE CAO MDSigned By:<Electronically signed by MARCELLE CAO MD in OV>11/11/202152 DD/ 00TD/TT: Banquet Line Cook: MO Discharge Plan Discharge Clinical Impression: Hepatocellular carcinoma, Excessive gas Patient Disposition: Home, Self-Care Instructions: Gas and Bloating (ED) Additional Instructions: This CT of your abdomen showed that your mass in her liver is growing and this is likely causing your pain. We have given you Toradol, it is an NSAID, please do not take any other NSAIDs for the next 8 hours. I have also sent a pres cription for diclofenac to your pharmacy, please take as needed for pain according to the instructions. If you develop any bloody or black stools, vomiting blood or coffee ground looking substance, chest pain, shortness of breath, please call 911 or return to the emergency department. Please be sure to follow-up with your liver doctors at [facility] so they may continue your pain medication. Prescriptions: New diclofenac sodium 50 mg tablet,delayed release (DR/EC) 50 mg PO Q12H PRN (Reason: pain) Qty: 14 RF: 0 No Action Lantus Solostar U-100 Insulin 100 unit/mL (3 mL) insulin pen 30 unit subcut QPM RF: 0 insulin lispro [Humalog KwikPen Insulin] 100 unit/mL insulin pen See Rx Instructions subcut TID Qty: 15 RF: 0 lisinopril 10 mg tablet 10 mg PO DAILY RF: 0 atorvastatin 80 mg tablet 80 mg PO DAILY RF: 0 aspirin [Adult Low Dose Aspirin] 81 mg tablet,delayed release (DR/EC) 81 mg PO DAILY RF: 0 Biktarvy 50-200-25 mg tablet 1 tab PO DAILY RF: 0 methadone 10 mg/5 mL solution 6.5 mg PO Q6H RF: 0 doxycycline hyclate 100 mg capsule 100 mg PO DAILY RF: 0 vitamin B complex [B Complex-Vitamin B12] Tablet 1 tab PO DAILY RF: 0 Referrals: Greg Dallas MD [Physician] - 2 days (ED visit for increasing RUQ pain and gas) [facility] Past Medical History Medical History Aortic stenosis CAD (coronary artery disease) Chronic hepatitis B Essential hypertension H/O backache H/O hand x-ray H/O lower limb amputation Hepatitis HIV (human immunodeficiency virus infection) HTN (hypertension) Hyperlipidemia LDL goal <70 Hyponatremia Lipodystrophy Liver cancer Proteinuria PVD (peripheral vascular disease) Thrombocytopenia 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 2 diabetes mellitus with other diabetic kidney complication Surgical History H/O amputation of foot H/O eye surgery S/P angiogram of extremity (~04/2020) Family History Family History Father Diabetes Mother Diabetes Paternal Grandfather Diabetes Paternal Grandmother Diabetes Maternal Grandfather Diabetes Maternal Grandmother Diabetes Social History Social History Household Members: Other Household 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
[2020-11-11 21:17] LABS: INTERNATIONAL NORM RATIO 1.2 (0.9-1.1)
[2020-11-11] MEDS: Lactated Ringers 1,000 ML 999 ML IV (21:58)
[2020-11-11 22:03] LABS: Ammonia 40 umol/L (13-55)
[2020-11-11 22:15] VITALS: BP 136/75; PULSE 68; RESP 16; O2SAT 96
[2020-11-11] MEDS: Ketorolac Tromethamine 30 MG/ML VIAL IVPUSH (23:52)
== END 2020-11-12 00:39 | disposition home or self-care (01) ==
PROVIDERS: Physician Assistant; Emergency Provider Internal Medicine
DX: R10.9 Unspecified abdominal pain (principal); C22.7 Other specified carcinomas of liver; R14.0 Abdominal distension (gaseous); Z21 Asymptomatic human immunodeficiency virus [HIV] infection status; Z79.899 Other long term (current) drug therapy
CPT/HCPCS: 36415; 74176; 80053; 82140; 83690; 85025; 85610; 85730; 96365; 96372; 96375; 99283; J1885

== ENCOUNTER → 2020-11-14 08:09 | Outpatient (REF) | payer MEDICAID, SELFPAY ==
--- NOTE | 2020-11-14 08:21 | CA_ITS ---
Transthoracic Echocardiogram Patient (Last, First, Middle): Keyla Abraham, Gender: Male Date of : 1960 Age: 60 Procedure Date: 11/14/2020 Procedure Type: Transthoracic Echocardiogram Location: OP Height: 175.26 cm Weight: 63.5 kg BSA: 1.78 m2 Heart Rate: bpm BP: 125 / 60 mmHg Pediatric Radiologist: DENEEN Referring MD: Laisha Berg GAS CHARGER-C Symptoms: I35.0 - Nonrheumatic aortic (valve) stenosis Study Quality: Good Conclusions: - 1. Normal LV systolic function with grade 1 diastolic dysfunction 2. Severe aortic stenosis with valve area of 0.84 centimeters sq, possibly bicuspid aortic valve 3. Normal RV systolic pressure 4. No pericardial effusion Findings Left Ventricle Normal left ventricular size, thickness, and systolic function. The visually estimated ejection fraction is between 60-65%. Spectral Doppler is indicative of an impaired relaxation filling pattern. E/E prime ratio is <8, consistent with normal filling pressures. Evidence suggests grade I (mild) diastolic dysfunction. Right Ventricle Normal right ventricular cavity size and systolic function. Atria The left atrium is mildly dilated. There is no evidence of interatrial shunt. The right atrium is normal in size. Aortic Valve There is moderate calcification of the aortic valve. There is severe thickening of the aortic valve with reduced excursion. The peak aortic gradient is 113 mmHg.The mean gradient is 67 mmHg. The aortic valve area is 0.84 cm2. There is mild aortic valve regurgitation. Aortic valve appears to be bicuspid. The calculated dimensionless index is 0.20, consistent with severe aortic stenosis Mitral Valve There is mild anterior mitral leaflet thickening. There is trace mitral valve regurgitation. There is no mitral valve stenosis. Pulmonic Valve The pulmonic valve was not well visualized. Tricuspid Valve Likely normal tricuspid valve structure and function. There is mild tricuspid valve regurgitation. The right ventricular systolic pressure is normal. The right ventricular systolic pressure is 35 mmHg. Normal right atrial pressure. There is no evidence of pulmonary hypertension. Great Vessels All visible segments of the aorta are normal in size. The pulmonary artery was not well visualized. Venous The inferior vena cava is normal in size and collapses greater than 50% with inspiration. Pericardium/Pleural There is no evidence of pericardial effusion. Prior Study Comparison Changes noted compared to prior study dated: 09/13/2019. Aortic stenosis valve area is at 0.84 centimeters sq, this is worse compared to prior study from last year Measurements 2D Linear Measurements IVSd: 1.07 0.6-0.9/0.6-1.0 cm LVIDd: 4.51 3.9-5.3/4.2-5.9 cm LVIDd Index: 2.53 2.4-3.2/2.2-3.1 cm/m2 LVIDs: 2.75 2.0-3.6 cm LVPWd: 1.08 0.7-1.1 cm Ao Root: 3.50 2.1-3.5 cm LA Diam: 3.80 2.7-3.8/3.0-4.0 cm LAIDs Index: 2.13 1.5-2.3 cm/m2 LV Mass: 211.82 67-162/88-224 g LV Mass Index: 119.00 43-95/49-115 g/m2 LVOT Diam: 2.30 3.0+(-)1.3 cm 2D Systolic Function EF 4C: 56.20 >55% EF 2C: 67.10 >55% EF BiP: 61.10 >55% Mitral Valve MV Pk E: 0.92 MV PK A: 0.99 MV Decel Time: 178.00 E/A: 0.90 E'Lateral: 12.10 E'Medial: 7.94 E/E' Med: 11.60 E/E' Lat: 7.60 PHT: 52.00 MVA PHT: 4.23 Decel Robertson: 5.18 Aortic Valve AoV Pk Valente: 5.31 AoV Mn Valente: 3.91 AoV VTI: 1.32 AoV Pk Grad: 113.00 Aov Mn Grad: 67.00 TAMIE Cont.VTI: 0.84 AI Pk Valente: 4.36 AI Robertson: 3.19 LVOT LVOT Pk Valente: 0.99 LVOT Mn Valente: 0.66 LVOT VTI: 0.27 LVOT Pk Grad: 4.00 LVOT Mn Grad: 2.00 LVOT Diam: 2.30 LVOT Area: 4.15 Diastolic Function MV Pk E: 0.92 MV Pk A: 0.99 E/A: 0.90 E'Medial: 7.94 E/E' Med: 11.60 E' Laterial: 12.10 E/E' Lat: 7.60 Tricuspid Valve TR Pk Valente: 2.85 TR Pk Grad: 32.00 RA Press: 3.00 RVSP: 35.00 Great Vessels Aorta Ao Root-2D: 3.50 2.0-3.7 cm Ao Asc: 3.40 2.1-3.4 cm Ao Arch: 3.10 Updated in Other Vendor System with Status of Final Anoop Fernandes MD electronically signed on 11/15/2020 11:55:02 AM with status of Final
== END ==
LOC: HO.CARD 08:09
PROVIDERS: PCP Pediatrics; Visit Provider Nurse Practitioner Family
DX: Z01.810 Encounter for preprocedural cardiovascular examination (principal); I35.0 Nonrheumatic aortic (valve) stenosis; I25.10 Atherosclerotic heart disease of native coronary artery without angina pectoris
CPT/HCPCS: 93005; 93306; 99212

== ENCOUNTER 2020-11-29 13:32 | Outpatient (REF) | payer MEDICAID, SELFPAY ==
--- NOTE | ~2020-11-29 | US_ITS ---
EXAMINATION: US VENOUS ULTRASOUND WITH DOPPLER LOWER EXTREMITY, RIGHT CLINICAL INFORMATION: Right lower extremity edema. COMPARISON: None TECHNIQUE: Ultrasound of the deep veins is performed from the hip to the calf with compression sonography and color and pulse Doppler assessment. Spectral analysis with color-flow imaging is performed. FINDINGS: There is normal venous compression and respiratory variation and augmented flow. The visualized common femoral vein, superficial femoral vein, profunda femoral vein, popliteal vein, and the trifurcation region shows no evidence of deep venous thrombosis. There is no significant popliteal fossa cyst. Mild to moderate subcutaneous edema seen in the right calf. If the patient's symptoms persist, followup ultrasound in 5 days 7 days might be of value to exclude proximal propagation from a non-visualized calf vein. US/US venous duplex LE RT IMPRESSION: 1. No evidence for deep venous thrombosis in the visualized veins of the right lower extremity. 2. Mild to moderate subcutaneous edema in the right calf.
== END 2020-11-29 13:33 | disposition home or self-care (01) ==
LOC: HO.US 13:32
PROVIDERS: Absent Provider Internal Medicine; PCP Internal Medicine; Visit Provider Family Medicine
DX: R60.0 Localized edema (principal)
CPT/HCPCS: 93971

== ENCOUNTER 2021-01-16 17:46 | Emergency (ER) | payer MEDICAID, SELFPAY ==
--- NOTE | ~2021-01-16 | XR_ITS ---
EXAMINATION: XR ANKLE, RIGHT CLINICAL INFORMATION: Wound. History of amputation. COMPARISON: Right foot August 15, 2020 TECHNIQUE: AP, lateral, and mortise views of the right ankle. FINDINGS: Status post amputation of the foot. Remaining talus and calcaneus. Surgical clips in the soft tissues at the amputation site. Is likely a focal defect of the soft tissues at the amputation margin of the plantar surface and at the superior margin of the amputation site. Clinically correlate. No gas within the soft tissue. No focal bone destruction or abnormal periosteal reaction. No radiographic evidence for osteomyelitis. Small calcaneal spur at the insertion of Achilles tendon. XR/XR ankle RT min 3V IMPRESSION: 1. Status post amputation of the mid and forefoot. No acute bone destruction to suggest acute osteomyelitis. 2. Soft tissue defects at the amputation site. Clinically correlate. No gas in the soft tissue.
[2021-01-16 19:12] VITALS: BP 132/80; PULSE 81; RESP 18; TEMP 36.1; O2SAT 99; BMI 19.9
[2021-01-16 19:37] LABS: MANUAL DIFF FLAG NO
[2021-01-16 19:40] LABS: Basophils Percent Auto 0.4 % (0-2); Eosinophils Percent Auto 0.6 % (0-4); Hematocrit 33.8 % (42-52); Hemoglobin 10.1 g/dl (14.0-18.0); Imm Gran Abs Auto 0.03 X10*3/uL (0.00-0.03); Imm Gran Pct Auto 0.4 % (0.0-0.4); Lymphocytes Absolute Auto 1.3 X10*3/uL (1.2-4.9); Lymphocytes Percent Auto 18.7 % (20-40); Mean Corpuscular HGB Conc 29.9 g/dl (31.0-36.0); Mean Corpuscular Hemoglobin 26.3 pg (27.0-33.0); Mean Platelet Volume 8.9 fL (9.4-12.4); Monocytes Absolute Auto 0.6 X10*3/uL (0.1-1.2); Monocytes Percent Auto 9.1 % (2-11); Neutrophils Absolute Auto 4.9 X10*3/uL (2.0-8.3); Neutrophils Percent Auto 70.8 % (45-73); Platelet Count 188 X10*3/uL (160-400); Red Blood Count 3.84 X10*6/uL (4.60-5.80); Red Cell Distribution Width 18.6 % (11.0-16.0); White Blood Count 6.9 X10*3/uL (4.8-10.8)
[2021-01-16 20:01] LABS: Lactic Acid 1.7 mmol/L (0.5-2.0)
[2021-01-16 20:05] LABS: Alanine Aminotransferase 16 U/L (0-40); Albumin Level 3.4 g/dL (3.5-5.0); Alkaline Phosphatase 479 U/L (39-117); Anion Gap 15 (12-20); Aspartate Amino Transferase 52 U/L (5-37); Bilirubin Direct 0.3 mg/dL (0.0-0.5); Bilirubin Total 0.7 mg/dL (0.0-1.0); Blood Urea Nitrogen 27 mg/dL (9-16); Calcium 8.7 mg/dL (8.4-10.2); Carbon Dioxide 25 mmol/L (22-29); Chloride 103 mmol/L (96-108); Creatinine Clr Calc Pharmacy 66.4; Estimated Glomerular Filt Rate > 60; Glucose Random 124 mg/dL (60-115); Potassium 5.7 mmol/L (3.3-5.1); Sodium 137 mmol/L (135-145); Total Protein 6.6 g/dL (6.5-8.0)
[2021-01-16 20:10] VITALS: BP 157/90; PULSE 85; RESP 16; TEMP 36.6; O2SAT 99
--- NOTE | 2021-01-16 20:44 | ED.WOUNDLAC ---
HPI - Wound/Laceration General Chief Complaint: Wound/Laceration Stated Complaint: Foot ulcer Time Seen by Provider: 01/16/21 20:43 Source: patient Mode of arrival: wheelchair Limitations: no limitations History of Present Illness HPI narrative: Patient has a foot ulcer that is followed by wound care clinic, no pus or drainage at this time Onset (ago): year(s) Extremity Location: right: lower leg Related Data Home Medications Medication Instructions Recorded Confirmed insulin glargine 100 unit/mL (3 30 unit SUBCUT QPM ml 06/28/20 11/10/20 mL) subcutaneous pen aspirin 81 mg tablet,delayed 81 mg PO DAILY 07/13/20 11/10/20 release atorvastatin 80 mg tablet 80 mg PO DAILY 07/13/20 11/10/20 bictegravir 50 mg-emtricitabine 1 tab PO DAILY 07/13/20 11/10/20 200 mg-tenofovir alafenam 25 mg tablet doxycycline hyclate 100 mg capsule 100 mg PO DAILY 07/13/20 11/10/20 lisinopril 10 mg tablet 10 mg PO DAILY 07/13/20 11/10/20 methadone 10 mg/5 mL oral solution 6.5 mg PO Q6H ml 07/13/20 11/10/20 vitamin B complex 1 tab PO DAILY 07/13/20 11/10/20 Previous Rx's Medication Instructions Recorded insulin lispro 100 unit/mL See Rx Instructions SUBCUT TID #15 10/05/20 subcutaneous pen ml diclofenac sodium 50 mg PO Q12H PRN #14 tab 11/11/20 Allergies Allergy/AdvReac Type Severity Reaction Status Date / Time iodine Allergy Intermediate Rash Verified 11/09/20 10:43 Review of Systems Constitutional: Constitutional: Reports no additional constitutional complaints Eyes: Eyes: Reports no additional eye complaints ENT: Denies dizziness Cardiovascular: Cardiovascular: Reports no additional cardiovascular complaints Respiratory: Respiratory: Reports as per HPI Gastrointestinal: Gastrointestinal: Reports no additional gastrointestinal complaints Musculoskeletal: Musculoskeletal: Reports no additional musculoskeletal complaints Integumentary/Breasts: Skin/Breast: Denies rash Neurologic: Reports system reviewed and no additional complaints, except as documented, Denies dizziness and Denies Sensory deficit (Neuro) Psychiatric: Psychiatric: Denies anxiety PMFSH Past Medical History Medical History Aortic stenosis CAD (coronary artery disease) Chronic hepatitis B Essential hypertension H/O backache H/O hand x-ray H/O lower limb amputation Hepatitis HIV (human immunodeficiency virus infection) HTN (hypertension) Hyperlipidemia LDL goal <70 Hyponatremia Lipodystrophy Liver cancer Proteinuria PVD (peripheral vascular disease) Thrombocytopenia 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 2 diabetes mellitus with other diabetic kidney complication Surgical History H/O amputation of foot H/O eye surgery S/P angiogram of extremity (~04/2020) Family History Family History Father Diabetes Mother Diabetes Paternal Grandfather Diabetes Paternal Grandmother Diabetes Maternal Grandfather Diabetes Maternal Grandmother Diabetes Social History Social History Household Members: Other Household Members Other:: friend/[employer] Advance Directives: No Advance Directives Information Provided: Yes Physical Exam Vital Signs: Vital Signs: Last Vital Signs Temp 97.8 F 01/16/21 20:10 Pulse 85 01/16/21 20:10 Resp 16 01/16/21 20:10 BP 157/90 H 01/16/21 20:10 Pulse Ox 99 01/16/21 20:10 Body Mass Index 19.9 Neuro: Sensory Exam: No Sensory deficit (Neuro) Course Reevaluation(s) Reevaluation #1: 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 At this time there is not evidence of acute infection to the ulcer. Will have patient follow up with the wound clinic Time: 20:51 [facility] - Wound/Laceration Lab Data Result diagrams: 01/16/21 19:32 01/16/21 19:32 Labs: Lab Results 01/16/21 01/16/21 01/16/21 Range/Units 19:31 19:32 19:32 WBC 6.9 (4.8-10.8) X10*3/uL RBC 3.84 L (4.60-5.80) X10*6/uL Hgb 10.1 L (14.0-18.0) g/dl Hct 33.8 L (42-52) % MCV 88.0 (80-98) fL MCH 26.3 L (27.0-33.0) pg MCHC 29.9 L (31.0-36.0) g/dl RDW 18.6 H (11.0-16.0) % Plt Count 188 (160-400) X10*3/uL MPV 8.9 L (9.4-12.4) fL Immature Gran % (Auto) 0.4 (0.0-0.4) % Neut % (Auto) 70.8 (45-73) % Lymph % (Auto) 18.7 L (20-40) % Carbon % (Auto) 9.1 (2-11) % Eos % (Auto) 0.6 (0-4) % Baso % (Auto) 0.4 (0-2) % Lymph # (Auto) 1.3 (1.2-4.9) X10*3/uL Carbon # (Auto) 0.6 (0.1-1.2) X10*3/uL Eos # (Auto) 0.0 (0.0-0.4) X10*3/uL Baso # (Auto) 0.0 (0.0-0.2) X10*3/uL Abs Immat Gran (auto) 0.03 (0.00-0.03) X10*3/uL Absolute Neuts (auto) 4.9 (2.0-8.3) X10*3/uL Absolute Nucleated RBC 0.000 (0.0-0.012) X10*3/uL Nucleated RBC % (auto) 0.0 (0.0-0.2) /100WBC Sodium 137 (135-145) mmol/L Potassium 5.7 H (3.3-5.1) mmol/L Chloride 103 (96-108) mmol/L Carbon Dioxide 25 (22-29) mmol/L Anion Gap 15 (12-20) BUN 27 H (9-16) mg/dL Creatinine 1.05 (0.5-1.4) mg/dL Estim Creat Clear Calc 66.4 Estimated GFR > 60 Random Glucose 124 H (60-115) mg/dL Lactic Acid 1.7 (0.5-2.0) mmol/L Calcium 8.7 D (8.4-10.2) mg/dL Total Bilirubin 0.7 (0.0-1.0) mg/dL Direct Bilirubin 0.3 (0.0-0.5) mg/dL AST 52 H (5-37) U/L ALT 16 (0-40) U/L Alkaline Phosphatase 479 H D (39-117) U/L Total Protein 6.6 (6.5-8.0) g/dL Albumin 3.4 L D (3.5-5.0) g/dL Imaging Data right lower extremity: Radiologist's impression: IMPRESSION: 1. Status post amputation of the mid and forefoot. No acute bone destruction to suggest acute osteomyelitis. 2. Soft tissue defects at the amputation site. Clinically correlate. No gas in the soft tissue. Discharge Plan Discharge Clinical Impression: Diabetic foot ulcer Qualifiers: Diabetic foot ulcer location: heel Diabetes mellitus type: type 2 Laterality: right Non-pressure ulcer stage: with muscle involvement without evidence of necrosis Qualified Code(s): E11.621 - Type 2 diabetes mellitus with foot ulcer Patient Disposition: Home, Self-Care Instructions: Diabetic Foot Ulcers (ED) Prescriptions: No Action Lantus Solostar U-100 Insulin 100 unit/mL (3 mL) insulin pen 30 unit subcut QPM RF: 0 insulin lispro [Humalog KwikPen Insulin] 100 unit/mL insulin pen See Rx Instructions subcut TID Qty: 15 RF: 0 diclofenac sodium 50 mg tablet,delayed release (DR/EC) 50 mg PO Q12H PRN (Reason: pain) Qty: 14 RF: 0 lisinopril 10 mg tablet 10 mg PO DAILY RF: 0 atorvastatin 80 mg tablet 80 mg PO DAILY RF: 0 aspirin [Adult Low Dose Aspirin] 81 mg tablet,delayed release (DR/EC) 81 mg PO DAILY RF: 0 Biktarvy 50-200-25 mg tablet 1 tab PO DAILY RF: 0 methadone 10 mg/5 mL solution 6.5 mg PO Q6H RF: 0 doxycycline hyclate 100 mg capsule 100 mg PO DAILY RF: 0 vitamin B complex [B Complex-Vitamin B12] Tablet 1 tab PO DAILY RF: 0 Referrals: Clay Butler MD [Primary Care Provider] - 5 days Louisa De Leon PA [Physician Assistant Infant Toddler Teacher] - 2 days
== END 2021-01-16 22:12 | disposition home or self-care (01) ==
PROVIDERS: Emergency Provider Emergency Medicine; PCP Internal Medicine
DX: E11.621 Type 2 diabetes mellitus with foot ulcer (principal); L97.415 Non-pressure chronic ulcer of right heel and midfoot with muscle involvement without evidence of necrosis; C22.0 Liver cell carcinoma; I10 Essential (primary) hypertension; Z21 Asymptomatic human immunodeficiency virus [HIV] infection status; Z79.4 Long term (current) use of insulin; Z79.82 Long term (current) use of aspirin; Z79.899 Other long term (current) drug therapy; Z89.512 Acquired absence of left leg below knee
CPT/HCPCS: 36415; 73610; 80048; 80076; 83605; 85025; 87040; 99284

== ENCOUNTER 2021-01-24 14:04 | Outpatient (REF) | payer MEDICAID, SELFPAY ==
--- NOTE | ~2021-01-24 | MM_ITS ---
EXAMINATION: BONE DENSITOMETRY CLINICAL INDICATION: Screening for osteoporosis. COMPARISON: Baseline BD dated 01/12/2018. TECHNIQUE: Using a [employer] DXA System (software version: 13.1) manufactured by [employer], dual-energy x-ray absorptiometry was performed of the lumbar spine and left hip. The images are of good technical quality. Summary results are attached. FINDINGS: AP SPINE L1-L3 (excluding L4): The data of L1-L4 has been changed to exclude the L4 vertebral body, because degenerative changes at this level may cause overestimation of lumbar spine density. Current: BMD 1.087 g/cm2, Z-score -0.1, T-score -1.0, normal, 0.8% decrease from baseline (<5% change is not significant). Baseline: BMD 1.096 g/cm2. LEFT FEMUR, NECK: Current: BMD 0.728 g/cm2, Z-score -1.3, T-score -2.6, osteoporosis. Baseline: BMD 0.788 g/cm2. LEFT FEMUR, TOTAL: Current: BMD 0.697 g/cm2, Z-score -2.0, T-score -2.8, osteoporosis, 7.2% decrease from baseline (<5% change is not significant). Baseline: BMD 0.751 g/cm2. IDENTIFIED RISK FACTORS: Renal, secondary osteoporosis. HISTORY OF FRACTURE: None listed. MEDICATIONS: Vitamin D. MM/XR DEXA axial skeleton IMPRESSION: 1. DIAGNOSIS: Osteoporosis based on the lowest T-score value of -2.8 in the total femur applying World Health Organization criteria. 2. 10-YEAR FRACTURE RISK PREDICTION, FRAX: Major osteoporotic fracture (clinical spine, forearm, hip or shoulder) 4.1%. Hip fracture 1.1%. 3. Treatment Recommendations: NOF guidelines recommend consideration for treatment in postmenopausal women and men age 50 and older presenting with the following: -A hip or vertebral (clinical or morphometric) fracture. -T-score less than or equal to -2.5 at the femoral neck or spine after appropriate evaluation to exclude secondary causes. -Low bone mass at the hip or spine and a 10-year fracture probability by FRAX of greater than or equal to 3% for hip fracture or greater than or equal to 20% for major osteoporotic fracture based on the [place] adapted WHO algorithm. 4. Other Recommendations: All treatment decisions require clinical judgment and consideration of individual patient factors, including patient preferences, comorbidities, previous drug use, risk factors not captured in the FRAX model (e.g. frailty, falls, vitamin D deficiency, increased bone turnover, interval significant decline in bone density) and possible under or overestimation of fracture risk by FRAX. Additional medical evaluation for secondary cause of low bone mineral density may be appropriate. FUTURE SCAN RECOMMENDATION: People with diagnosed cases of osteoporosis or at high risk for fracture should have regular bone mineral density tests. For patients eligible for Medicare, routine testing is allowed once every 2 years. The testing frequency can be increased to one year for patients who have rapidly progressing disease, those who are receiving or discontinuing medical therapy to restore bone mass, or have additional risk factors.
== END 2021-01-24 14:05 | disposition home or self-care (01) ==
LOC: HO.MAMMO 14:04
PROVIDERS: Visit Provider Internal Medicine
DX: Z13.820 Encounter for screening for osteoporosis (principal); M85.851 Other specified disorders of bone density and structure, right thigh; M81.0 Age-related osteoporosis without current pathological fracture; Z79.899 Other long term (current) drug therapy
CPT/HCPCS: 77080